=== PATIENT | male | born 1995 | race Caucasian/White ===

== ENCOUNTER → 2017-06-11 | Outpatient (CLI) | payer BC ==
--- NOTE | 2017-06-11 11:35 | MR ---
EXAMINATION TYPE: MR iac wo/w con DATE OF EXAM: 06/11/2017 COMPARISON: NONE HISTORY: Sudden idiopathic hearing loss, left ear ringing TECHNIQUE: Multiplanar, multisequence images of the brain and brainstem is performed without and with IV contras t, utilizing 15 mL intravenous MultiHance . FINDINGS: Diffusion weighted images demonstrate no evidence of a recent infarct or other diffusion ab normality. There is no extra-axial fluid collection or significant white matter signal abnormality. The ventricular system and cisternal spaces are normal in size and appearance. The brain volume is age appropriate. Midline structures demonstrate normal morphology. The craniocervical junction appears within normal limits. Post contrast images demonstrate no abnormal enhancement. The dural venous sinuses appear pa tent. The visualized sinuses are clear and the globes are intact. IMPRESSION: Normal internal auditory canal brain MRI with and without contrast.
== END | disposition home or self-care (01) ==
LOC: RADMRIMAIN 09:37
PROVIDERS: ATTEND Otolaryngology
DX: H91.22 Sudden idiopathic hearing loss, left ear (principal)
CPT/HCPCS: 70553; A9577

== ENCOUNTER 2018-04-27 01:24 | Emergency (ER) | payer BC ==
[2018-04-27 01:39] VITALS: RESP 18
[2018-04-27] MEDS ORDERED: ACETAMINOPHEN TAB 500 MG TAB PO STA (02:20)
[2018-04-27] MEDS ORDERED: SODIUM CHLORIDE 0.9% 1,000 ML IV STA (02:20)
[2018-04-27 02:39] LABS: Basophils # (A) 0.1 k/uL (0-0.2); Basophils % (A) 0 %; Eosinophils % (A) 0 %; HCT 45.6 % (39.0-53.0); HGB 15.9 gm/dL (13.0-17.5); Lymphocytes # (A) 0.9 k/uL (1.0-4.8); Lymphocytes % (A) 6 %; MCHC 34.9 g/dL (31.0-37.0); MCV 85.9 fL (80.0-100.0); Mean Platelet Volume 7.2; Monocytes % (A) 6 %; Neutrophils # (A) 13.9 k/uL (1.3-7.7); Neutrophils % (A) 86 %; Platelet Count 225 k/uL (150-450); RBC 5.31 m/uL (4.30-5.90); RDW 12.4 % (11.5-15.5); WBC 16.1 k/uL (3.8-10.6)
--- NOTE | 2018-04-27 02:46 | XR ---
EXAMINATION TYPE: XR chest 2V DATE OF EXAM: 04/27/2018 COMPARISON: 05/28/2014 HISTORY: Fever and cough TECHNIQUE: Frontal and lateral views of the chest are obtained. FINDINGS: Heart and mediastinum are normal. There is some consolidation in the posterior basal segme nt left lower lobe. The other lung sandhu are clear. There is no pleural effusion. There are chest le ads. IMPRESSION: Left lower lobe pneumonia is new compared to old exam. Normal heart.
[2018-04-27 02:50] LABS: ALT 83 U/L (21-72); AST 27 U/L (17-59); Albumin 4.6 g/dL (3.5-5.0); Alkaline Phosphatase 67 U/L (38-126); Anion Gap 15 mmol/L; Blood Urea Nitrogen 9 mg/dL (9-20); Calcium 9.4 mg/dL (8.4-10.2); Carbon Dioxide 24 mmol/L (22-30); Chloride 98 mmol/L (98-107); Glucose 144 mg/dL (74-99); Potassium 3.8 mmol/L (3.5-5.1); Sodium 137 mmol/L (137-145); Total Bilirubin 1.2 mg/dL (0.2-1.3); Total Protein 7.8 g/dL (6.3-8.2)
--- NOTE | 2018-04-27 02:52 | ED ---
Fever HPI - General Chief Complaint: Fever Stated Complaint: Heat exhaustion Time Seen by Provider: 04/27/18 01:52 Source: patient, family Mode of arrival: ambulatory Limitations: no limitations - History of Present Illness Initial Comments: 23-year-old male patient presents to emergency department today for complaints of fever, weakness, and body aches. Patient states that for the last 3 days he has been camping. States that he was outside more than he was inside. States that his symptoms started 2 days ago. Patient states he has a headache and neck pain with this. Says he has had intermittent blurred vision and has been dizzy. He states that he does have a slight cough with minimal sputum production. He is unsure of the color. He denies any sore throat, ear pain, nasal congestion, rash, dysuria, hematuria, urinary urgency, urinary frequency. He denies any abdominal pain, constipation, diarrhea, or vomiting. States that he has been nauseated but has not vomited. He states he is able to eat and drink without difficulty. Denies any sick contacts. Denies any wounds. Patient denies any recent shortness breath, chest pain, back pain, numbness, tingling, or any other complaints. - Related Data Previous Rx's Medication Instructions Recorded Amoxic-Pot Clav 875-125Mg 1 tab PO Q12HR #20 tablet 04/27/18 [Augmentin 875-125] Azithromycin [Zithromax] 500 mg PO DAILY #4 tab 04/27/18 Allergies Allergy/AdvReac Type Severity Reaction Status Date / Time No Known Allergies Allergy Verified 04/27/18 01:39 Review of Systems ROS Statement: Those systems with pertinent positive or pertinent negative responses have been documented in the HPI. ROS Other: All systems not noted in ROS Statement are negative. Past Medical History Past Medical History: No Reported History History of Any Multi-Drug Resistant Organisms: None Reported Past Surgical History: No Surgical Hx Reported Past Psychological History: No Psychological Hx Reported Smoking Status: Never smoker Past Alcohol Use History: Occasional Past Drug Use History: None Reported General Exam Limitations: no limitations General appearance: alert, in no apparent distress, other (This is a well- developed, well-nourished adult male patient in no acute distress. Vital signs upon presentation are temperature 102.4F, pulse 115, respirations 18, blood pressure 139/76, pulse ox 95% on room air.) Eye exam: Present: normal appearance, PERRL, EOMI. Absent: scleral icterus, conjunctival injection, periorbital swelling ENT exam: Present: normal exam, normal oropharynx, mucous membranes moist Neck exam: Present: normal inspection, full ROM. Absent: tenderness, meningismus, lymphadenopathy Respiratory exam: Present: normal lung sounds bilaterally. Absent: respiratory distress, wheezes, rales, rhonchi, stridor Cardiovascular Exam: Present: normal rhythm, tachycardia, normal heart sounds. Absent: systolic murmur, diastolic murmur, rubs, gallop, clicks GI/Abdominal exam: Present: soft, normal bowel sounds. Absent: distended, tenderness, guarding, rebound, rigid Neurological exam: Present: alert, oriented X3, CN II-XII intact Psychiatric exam: Present: normal affect, normal mood Skin exam: Present: warm, dry, intact, normal color. Absent: rash Course Vital Signs 04/27/18 04/27/18 04/27/18 01:37 03:39 04:11 Temperature 102.4 F H 98.7 F Pulse Rate 115 H 74 75 Respiratory 18 18 18 Rate Blood Pressure 139/76 129/58 128/60 O2 Sat by Pulse 95 96 96 Oximetry 04/27/18 05:36 Temperature Pulse Rate 62 Respiratory 18 Rate Blood Pressure 122/58 O2 Sat by Pulse 95 Oximetry Medical Decision Making - Medical Decision Making 23-year-old male patient presented to the emergency department today for evaluation of fever, body aches, and fatigue. Physical examination is relatively unremarkable. He had no meningismus. Lungs are clear to auscultation with good air movement. Patient did report having a cough with sputum production. Labs reviewed and showed a white blood cell count of 16.1, neutrophil count at 13.9. Urinalysis showed 2+ ketones, small blood, few mucus. Heterophile was negative. Chest x-ray did show evidence of left lower lobe pneumonia. I did discuss findings and results with the patient and his mother. He'll be given a prescription for Augmentin and azithromycin. He is instructed to follow-up with the primary care physician for recheck in 1-2 days. Did recommend repeat x-ray to ensure clearance of infection after antibiotics are complete. Return parameters were discussed in detail. He verbalizes understanding and agrees with this plan. - Lab Data Result diagrams: 04/27/18 02:00 04/27/18 02:00 Lab Results 04/27/18 04/27/18 04/27/18 Range/Units 02:00 02:00 02:00 WBC 16.1 H (3.8-10.6) k/uL RBC 5.31 (4.30-5.90) m/uL Hgb 15.9 (13.0-17.5) gm/dL Hct 45.6 (39.0-53.0) % MCV 85.9 (80.0-100.0) fL MCH 30.0 (25.0-35.0) pg MCHC 34.9 (31.0-37.0) g/dL RDW 12.4 (11.5-15.5) % Plt Count 225 (150-450) k/uL Neutrophils % 86 % Lymphocytes % 6 % Monocytes % 6 % Eosinophils % 0 % Basophils % 0 % Neutrophils # 13.9 H (1.3-7.7) k/uL Lymphocytes # 0.9 L (1.0-4.8) k/uL Monocytes # 1.0 (0-1.0) k/uL Eosinophils # 0.0 (0-0.7) k/uL Basophils # 0.1 (0-0.2) k/uL Sodium 137 (137-145) mmol/L Potassium 3.8 (3.5-5.1) mmol/L Chloride 98 (98-107) mmol/L Carbon Dioxide 24 (22-30) mmol/L Anion Gap 15 mmol/L BUN 9 (9-20) mg/dL Creatinine 0.70 (0.66-1.25) mg/dL Est GFR (CKD-EPI)AfAm >90 (>60 ml/min/1.73 sqM) Est GFR (CKD-EPI)NonAf >90 (>60 ml/min/1.73 sqM) Glucose 144 H (74-99) mg/dL Plasma Lactic Acid Giuseppe (0.7-2.0) mmol/L Calcium 9.4 (8.4-10.2) mg/dL Total Bilirubin 1.2 (0.2-1.3) mg/dL AST 27 (17-59) U/L ALT 83 H (21-72) U/L Alkaline Phosphatase 67 (38-126) U/L Total Protein 7.8 (6.3-8.2) g/dL Albumin 4.6 (3.5-5.0) g/dL Urine Color Urine Appearance (Clear) Urine pH (5.0-8.0) Ur Specific [place] (1.001-1.035) Urine Protein (Negative) Urine Glucose (UA) (Negative) Urine Ketones (Negative) Urine Blood (Negative) Urine Nitrite (Negative) Urine Bilirubin (Negative) Urine Urobilinogen (<2.0) mg/dL Ur Leukocyte Esterase (Negative) Urine RBC (0-5) /hpf Urine WBC (0-5) /hpf Ur Squamous Epith Cells (0-4) /hpf Urine Mucus (None) /hpf Heterophile Antibody Negative (Negative) 04/27/18 04/27/18 Range/Units 02:00 03:24 WBC (3.8-10.6) k/uL RBC (4.30-5.90) m/uL Hgb (13.0-17.5) gm/dL Hct (39.0-53.0) % MCV (80.0-100.0) fL MCH (25.0-35.0) pg MCHC (31.0-37.0) g/dL RDW (11.5-15.5) % Plt Count (150-450) k/uL Neutrophils % % Lymphocytes % % Monocytes % % Eosinophils % % Basophils % % Neutrophils # (1.3-7.7) k/uL Lymphocytes # (1.0-4.8) k/uL Monocytes # (0-1.0) k/uL Eosinophils # (0-0.7) k/uL Basophils # (0-0.2) k/uL Sodium (137-145) mmol/L Potassium (3.5-5.1) mmol/L Chloride (98-107) mmol/L Carbon Dioxide (22-30) mmol/L Anion Gap mmol/L BUN (9-20) mg/dL Creatinine (0.66-1.25) mg/dL Est GFR (CKD-EPI)AfAm (>60 ml/min/1.73 sqM) Est GFR (CKD-EPI)NonAf (>60 ml/min/1.73 sqM) Glucose (74-99) mg/dL Plasma Lactic Acid Giuseppe 1.3 (0.7-2.0) mmol/L Calcium (8.4-10.2) mg/dL Total Bilirubin (0.2-1.3) mg/dL AST (17-59) U/L ALT (21-72) U/L Alkaline Phosphatase (38-126) U/L Total Protein (6.3-8.2) g/dL Albumin (3.5-5.0) g/dL Urine Color Yellow Urine Appearance Clear (Clear) Urine pH 6.5 (5.0-8.0) Ur Specific [place] 1.014 (1.001-1.035) Urine Protein Trace H (Negative) Urine Glucose (UA) Negative (Negative) Urine Ketones 2+ H (Negative) Urine Blood Small H (Negative) Urine Nitrite Negative (Negative) Urine Bilirubin Negative (Negative) Urine Urobilinogen <2.0 (<2.0) mg/dL Ur Leukocyte Esterase Negative (Negative) Urine RBC 4 (0-5) /hpf Urine WBC 3 (0-5) /hpf Ur Squamous Epith Cells <1 (0-4) /hpf Urine Mucus Few H (None) /hpf Heterophile Antibody (Negative) - Radiology Data Radiology results: report reviewed, image reviewed Two-view x-ray of the chest is obtained. Heart and mediastinum are normal. There is some consolidation in the posterior basal segment of the left lower lobe. The other lung sandhu are clear. There is no pleural effusion. There are chest leads. Impression by Dr. Beauchamp shows left lower lobe pneumonia is new compared to old exam. Normal heart. Disposition Clinical Impression: Pneumonia Disposition: HOME SELF-CARE Condition: Good Instructions: Fever in Adults (ED), Pneumonia (ED) Additional Instructions: Complete antibiotics in full. Follow-up with your primary care physician for recheck in 1-2 days. Take Tylenol Motrin for fever control. Increase fluids. Return here immediately for any new, worsening, or concerning symptoms. Prescriptions: Amoxic-Pot Clav 875-125Mg [Augmentin 875-125] 1 tab PO Q12HR #20 tablet Azithromycin [Zithromax] 500 mg PO DAILY #4 tab Is patient prescribed a controlled substance at d/c from ED?: No Referrals: Stephon Carreno MD [Primary Care Provider] - 1-2 days Time of Disposition: 05:46
[2018-04-27 03:51] LABS: Appearance,Urine Clear (Clear); Bilirubin,Urine Negative (Negative); Blood,Urine Small (Negative); Color,Urine Yellow; Glucose,Urine (UA) Negative (Negative); Ketones,Urine 2+ (Negative); Leukocyte Esterase,Urine Negative (Negative); Mucus,Urine Few /hpf; Nitrite,Urine Negative (Negative); PH, Urine 6.5 (5.0-8.0); Protein,Urine Trace (Negative); RBC,Urine 4 /hpf (0-5); Specific Gravity,Urine 1.014 (1.001-1.035); Squamous Epithelial Cell,Urine <1 /hpf (0-4); Urobilinogen,Urine <2.0 mg/dL (<2.0); WBC,Urine 3 /hpf (0-5)
[2018-04-27 04:13] VITALS: TEMP 98.7
[2018-04-27 05:39] VITALS: BP 122/58; PULSE 62
[2018-04-27] MEDS ORDERED: AMOXIC-POT CLAV 875MG STARTER 2 EACH TABLET PO STA (05:45)
[2018-04-27] MEDS ORDERED: AZITHROMYCIN 500 MG TAB PO STA (05:45)
== END 2018-04-27 06:21 | disposition home or self-care (01) ==
LOC: EC 01:24
DX: J18.9 Pneumonia, unspecified organism (principal)
CPT/HCPCS: 36415; 71046; 80053; 81001; 83605; 85025; 86308; 87040; 96360; 99283

== ENCOUNTER → 2018-05-14 | Outpatient (CLI) | payer BC ==
--- NOTE | 2018-05-14 15:26 | XR ---
EXAMINATION TYPE: XR chest 2V DATE OF EXAM: 05/14/2018 COMPARISON: Chest x-ray 04/27/2018 HISTORY: Pneumonia TECHNIQUE: Frontal and lateral views of the chest are obtained on 3 images. FINDINGS: There is no pleural effusion or pneumothorax seen. Patchy increased density present at th e left lung base is improved as compared to prior exam. The cardiac silhouette size is within normal limits. The osseous structures are intact. IMPRESSION: Improved aeration.
== END | disposition home or self-care (01) ==
LOC: RADXRMAIN 15:07
PROVIDERS: ATTEND Physician Assistant
DX: J18.9 Pneumonia, unspecified organism (principal)
CPT/HCPCS: 71046

== ENCOUNTER → 2018-05-22 | Outpatient (CLI) | payer BC ==
[2018-05-22 11:18] LABS: Basophils # (A) 0.1 k/uL (0-0.2); Basophils % (A) 1 %; Eosinophils # (A) 0.2 k/uL (0-0.7); Eosinophils % (A) 2 %; HCT 48.3 % (39.0-53.0); HGB 16.4 gm/dL (13.0-17.5); Lymphocytes # (A) 1.7 k/uL (1.0-4.8); Lymphocytes % (A) 16 %; MCH 29.5 pg (25.0-35.0); MCV 86.7 fL (80.0-100.0); Mean Platelet Volume 6.4; Monocytes % (A) 10 %; Neutrophils # (A) 7.1 k/uL (1.3-7.7); Neutrophils % (A) 67 %; Platelet Count 222 k/uL (150-450); RBC 5.57 m/uL (4.30-5.90); RDW 12.8 % (11.5-15.5); WBC 10.5 k/uL (3.8-10.6)
[2018-05-22 11:29] LABS: ALT 149 U/L (21-72); AST 96 U/L (17-59); Albumin 4.6 g/dL (3.5-5.0); Alkaline Phosphatase 86 U/L (38-126); Anion Gap 12 mmol/L; Blood Urea Nitrogen 15 mg/dL (9-20); Calcium 9.8 mg/dL (8.4-10.2); Carbon Dioxide 27 mmol/L (22-30); Chloride 100 mmol/L (98-107); Glucose 94 mg/dL (74-99); Potassium 4.5 mmol/L (3.5-5.1); Sodium 139 mmol/L (137-145); Total Bilirubin 0.7 mg/dL (0.2-1.3); Total Protein 7.9 g/dL (6.3-8.2)
== END | disposition home or self-care (01) ==
LOC: LABWHC1 10:13
PROVIDERS: ATTEND Internal Medicine
DX: J18.9 Pneumonia, unspecified organism (principal)
CPT/HCPCS: 36415; 80053; 85025; 87449; 87798

== ENCOUNTER → 2018-06-12 | Outpatient (CLI) | payer BC ==
--- NOTE | 2018-06-12 12:39 | XR ---
EXAMINATION TYPE: XR chest 2V DATE OF EXAM: 06/12/2018 COMPARISON: 05/22/2018 TECHNIQUE: PA and lateral views submitted. HISTORY: Cough FINDINGS: The lungs are clear and there is no pneumothorax, pleural effusion, or focal pneumonia. IMPRESSION: 1. No acute process.
== END | disposition home or self-care (01) ==
LOC: RADXRMAIN 11:59
PROVIDERS: ATTEND Internal Medicine
DX: J18.1 Lobar pneumonia, unspecified organism (principal)
CPT/HCPCS: 71046